=== PATIENT | male | born 1975 | race Native Hawaiian/Other Pacific Islander ===

== ENCOUNTER 2016-11-01 16:33 | Inpatient (IN) | payer SELFPAY ==
[2016-11-01] MEDS ORDERED: ONDANSETRON HCL/PF 4 MG/ 2ML VIAL IVP ONE (16:42)
[2016-11-01] MEDS ORDERED: HYDROmorphone HCL/PF 1 MG/ML DISP.SYRIN IVP ONE (16:42)
[2016-11-01] MEDS ORDERED: methylPREDNISolone SOD SUCC 125 MG/2 ML VIAL IVP ONE (16:46)
[2016-11-01] MEDS ORDERED: diphenhydrAMINE HCL 50 MG/ML VIAL IVP ONE (16:46)
[2016-11-01] MEDS ORDERED: 0.9 % SODIUM CHLORIDE 1,000 ML IV SCH (17:00)
[2016-11-01] MEDS ORDERED: 0.9 % SODIUM CHLORIDE 1,000 ML IV ONE ×2 (17:00→20:51)
[2016-11-01 17:09] LABS: BASOPHILS % 0.2 (0.0-1.5); EOSINOPHILS % 1.7 % (0.0-6.8); LYMPHOCYTES # 1.3 # k/uL (0.6-4.0); MEAN CORPUSCULAR HEMOGLOBIN 36.2 pg (28.0-34.0); MONOCYTES # 0.4 # k/uL (0.0-0.9); MONOCYTES % 2.1 % (0.0-11.0); NEUTROPHILS # 15.1 # k/uL (1.4-7.7)
[2016-11-01 18:50] LABS: eGFR (African) > 60; eGFR (Non-African) > 60
[2016-11-01] MEDS ORDERED: HALOPERIDOL LACTATE 5 MG/ML VIAL IM ONE (18:50)
[2016-11-01] MEDS ORDERED: HYDROmorphone HCL/PF 1 MG/ML DISP.SYRIN IM ONE (19:24)
--- NOTE | 2016-11-01 20:35 | Diagnostic Imaging Report ---
[facility] [id number] [facility] [address] [place], [place]. [address] Report Submission Date: Nov 01, 2016 6:01:43 PM MASTER MECHANIC Patient Study Name: ANGELITA JOY Date: Nov 01, 2016 5:41:09 PM MASTER MECHANIC Modality Type: CT\SR Gender: M Description: CT ABD & PELVIS W/O CO : 73 Institution: [facility] Physician: HIGINIO CAMPOS CT abdomen and pelvis without IV contrast Clinical history: Severe abdominal pain, history of pancreatitis Radiation dose DLP 660 No focal hepatic or splenic pathology. Extensive acute pancreatitis with peripancreatic edema involving the body, tail and head of the pancreas without visible pseudocyst. Kidneys are normal. No abdominal aortic aneurysm. No free fluid or free air in the abdomen or pelvis. No bowel obstruction. Normal appendix. Few diverticula is in the sigmoid colon. Impression: Extensive acute pancreatitis with peripancreatic edema without visible pseudocyst Mild diverticulosis of the colon No bowel obstruction and no free fluid or free air in the abdomen or pelvis Electronically signed on Nov 01, 2016 6:01:43 PM MASTER MECHANIC by: Oli MCCABE
[2016-11-01 20:43] VITALS: BMI 27.8
--- NOTE | 2016-11-01 20:44 | History and Physical Report ---
History of Present Illnes - History of Present Illness Reason for Visit: abd pain History of Present Illness: 41yo male with a history of recurrent pancreatitis. Last episode was about 3 months ago. Patient seems to have had a endoscopy/ERCP with no pathology found. Patient denies any gall stones, history of alcoholism. patient does have a history of hyperlipidemia. On the evening of admission he started to have some abdominal pain similar to what he has had in the past with pancreatitis. Patient has had some nausea and vomiting associated with it. He presented to the ED and was noted to have an elevated amylase and acute pancreatitis on CT scanning. Patient was admitted for further evaluation and treatment. Ransons score of 2 - Past Medical History Cardiac: Hyperlipidemia - Past Surgical History Past Surgical History: None - Past Social History Smoke: No Alcohol: None Drugs: None Lives: With Family Domestic Violence: Negative - Health Maintenance Health Maintenance: Cholesterol. denies: Colonoscopy Influenza Vaccine: No Pneumonia Vaccine: No Resuscitation Status: Resusciation Status Resuscitation Status Full Code - Unable to Obtain History Unable to Obtain: Yes Review of Systems - Review of Systems Constitutional: Chills, Weakness. negative: Fever Eyes: negative: pain ENT: negative: Ear Pain, Ear Discharge, Mouth Pain, Mouth Swelling, Throat Pain Respiratory: negative: Cough, Shortness of Breath, Hemoptysis, SOB with Excertion, Pleuritic Pain Cardiovascular: negative: Chest Pain, Palpitations, Edema Gastrointestinal: Nausea, Vomiting, Abdominal Pain. negative: Diarrhea, Constipation, Melena, Hematochezia Genitourinary: negative: Dysuria, Frequency, Incontinence Musculoskeletal: negative: Neck Pain, Back Pain Skin: negative: Rash, Lesions Neurological: negative: Weakness, Numbness, Incoordination - Medications/Allergies Allergies/Adverse Reactions: Allergies Allergy/AdvReac Type Severity Reaction Status Date / Time No Known Allergies Allergy Verified 11/01/16 19:10 Current Inpatient Medications: Current Inpatient Medications Sodium Chloride (Normal Saline) 1,000 mls @ 1,000 mls/hr IV .Q1H GIRMA Miscellaneous (Chem Sticks) 1 each MC CHEMQ GIRMA Last Admin: 11/01/16 20:26 Dose: 1 each Exam - Exam Vital Signs: Vital Signs (72 hours) 11/01/16 11/01/16 20:18 20:20 Temperature 98.6 F Pulse Rate [ 78 94 H Pulse ox] Respiratory 18 20 Rate Blood Pressure 128/68 152/87 [Right Arm] O2 Sat by Pulse 99 97 Oximetry General: Oriented to Person, Oriented to Place, Oriented to Time, Cooperative. No: Alert (lethargic from pain meds) HEENT: Atraumatic, PERRLA, Mouth Mucous membr. moist/[place] Neck: Normal Range of Motion. No: Stridor, Rigidity, Lymphadenopathy Carotids: WNL Thyroid: WNL Lungs: Clear to auscultation, Normal air movement, Speaks full Sentences, Respiratory Distress. No: Wheezes, Rales, Rhonchi, Stridor Cardiovascular: Regular rate, Normal S1, Normal S2, No murmurs. No: Gallops, Rubs Abdomen: Soft, No hepatospenomegaly, No masses, Decreased Bowel Sounds. No: Distended Integumentary: Normal, [place], Warm, Dry Extremities: No clubbing, No cyanosis, No edema Neurological: Normal speech, Strength Equal Bilat, Normal tone Psych/Mental Status: Mental status NL, Mood NL, Appropriate Affect, Intact Judgment Assessment/Plan - Assessment/Plan (1) Recurrent pancreatitis Status: Acute Current Visit: Yes Plan: IV fluids support, will monitor lipase, amylase, CBC and liver tests. NPO for now. (2) Hyperglycemia Status: Acute Current Visit: Yes Assessment: Chem sticks QID with sliding scale insulin (3) Hyponatremia Status: Acute Current Visit: Yes Assessment: Will give patient NS IV and recheck VTE Assessment - RISK FACTOR SCORE VTE RISK FACTOR SCORES: AGE 40-60 YEARS, ANTICIPATED BED CONFINEMENT OR IMMOBILIZATION > 24 HOURS - RISK VTE MODERATE RISK: SCORE OF 2 (RISK PROXIMAL DVT 2-4%) PROPHYAXIS NEEDED
[2016-11-01] MEDS: 0.9 % SODIUM CHLORIDE 1,000 ML IV SCH (20:59)
[2016-11-01] MEDS ORDERED: ENOXAPARIN SODIUM 30 MG/0.3 ML DISP.SYRIN SQ SCH (21:00)
[2016-11-01] MEDS ORDERED: HYDROmorphone HCL/PF 2 MG/ML DISP.SYRIN ONE (21:02)
[2016-11-01] MEDS ORDERED: ENOXAPARIN SODIUM 30 MG/0.3 ML DISP.SYRIN SQ ONE (21:02)
[2016-11-01] MEDS ORDERED: INSULIN REGULAR, HUMAN 100 UNIT/ML 3ML VIAL ONE (21:03)
[2016-11-01] MEDS: INSULIN REGULAR, HUMAN 100 UNIT/ML 3ML VIAL SQ SCH (21:09)
[2016-11-01] MEDS: HYDROmorphone HCL/PF 1 MG/ML DISP.SYRIN IVP PRN (21:13)
[2016-11-01] MEDS ORDERED: ONDANSETRON HCL/PF 4 MG/ 2ML VIAL IVP PRN (21:21)
[2016-11-02] MEDS ORDERED: SALINE FLUSH 10 ML DISP.SYRIN IVF ONE ×2 (00:50→08:14)
[2016-11-02] MEDS ORDERED: HYDROmorphone HCL/PF 2 MG/ML DISP.SYRIN ONE ×2 (06:14→08:14)
[2016-11-02] MEDS ORDERED: 0.9 % SODIUM CHLORIDE 1,000 ML IV ONE (06:15)
[2016-11-02] MEDS: HYDROmorphone HCL/PF 1 MG/ML DISP.SYRIN IVP PRN ×2 (06:21→08:23)
[2016-11-02] MEDS: 0.9 % SODIUM CHLORIDE 1,000 ML IV SCH (06:21)
[2016-11-02 06:56] LABS: MEAN CORPUSCULAR HEMOGLOBIN 35.9 pg (28.0-34.0)
[2016-11-02 07:24] LABS: eGFR (African) > 60; eGFR (Non-African) > 60
[2016-11-02] MEDS: INSULIN REGULAR, HUMAN 100 UNIT/ML 3ML VIAL SQ SCH (07:48)
--- NOTE | 2016-11-02 08:16 | ED Physician Documentation ---
Abdominal Pain - HISTORIAN Historian: patient - HPI Stated Complaint: abdominal pain Chief Complaint: Abdominal Pain Additonal Information: hx of pancreatitis, flare today Onset: hours (1) Duration: constant, sudden-onset Timing: still present Context: denies: out of country travel, bad food, recent trauma Severity: severe Quality: sharp Front/Back of Body, Lg (Color): 1 - pain Associated Symptoms: nausea, vomiting Exacerbated by: food Relieved by: nothing Further Comments: no - ROS CONST: no problems GI/: other (epigastric pain, hx of pancreatitis) CVS/RESP: none EYES/ENT: none MS/SKIN/LYMPH: none NEURO/PSYCH: none - SOCIAL HX Smoking History: non-smoker Alcohol Use: none Drug Use: none - FAMILY HX Family History: no significant history - PAST HX Past History: pancreatitis, other (dm, hyperlipidemia) Ischemic Bowel Risk Factors: none Other History: none Surgeries/Procedures: none Immunizations: referred to PCP Allergies/Adverse Reactions: Allergies Allergy/AdvReac Type Severity Reaction Status Date / Time No Known Allergies Allergy Verified 11/01/16 19:10 - VITAL SIGNS Vital Signs: Vital Signs Temp Pulse Resp BP Pulse Ox 100 F H 86 16 124/83 92 11/02/16 06:00 11/02/16 06:00 11/02/16 06:00 11/02/16 06:00 11/02/16 06:00 - REVIEWED ASSESSMENTS Nursing Assessment Reviewed: Yes Vitals Reviewed: Yes Progress - Results/Orders Results/Orders: pt. given zofran, benadryl, solu medrol, dilaudid 1 mg x 2, haldol in er - Progress Progress: pt. very agitated, in pain and very dramatic in er Critical Care Note - Critical Care Note Total Time (mins): 0 ED Results Lab/Radiology - Lab Results Lab Results: Lab Results 11/01/16 11/01/16 17:00 17:00 WBC 17.10 K/ul H K/ul (4.00-12.00) RBC 4.69 M/ul M/ul (3.90-5.20) Hgb 17.0 g/dL g/dL (12.0-18.0) Hct 42.4 % % (37.0-53.0) MCV 90.4 fl fl (80.0-100.0) MCH 36.2 pg H pg (28.0-34.0) MCHC 40.1 g/dL H g/dL (30.0-36.0) RDW 13.9 % % (11.3-14.3) Plt Count 262 K/mm3 K/mm3 (130-400) Neut % (Auto) 87.9 % H % (39.0-79.0) Lymph % (Auto) 7.6 % L % (16.0-50.0) [place] % (Auto) 2.1 % % (0.0-11.0) Eos % (Auto) 1.7 % % (0.0-6.8) Baso % (Auto) 0.2 (0.0-1.5) Neut # 15.1 # k/uL H # k/uL (1.4-7.7) Lymph # 1.3 # k/uL # k/uL (0.6-4.0) [place] # 0.4 # k/uL # k/uL (0.0-0.9) Eos # 0.3 # k/uL # k/uL (0.0-0.6) Baso # 0.0 # k/uL # k/uL (0.0-0.5) Reactive Lymphs % 0.4 % % (0.0-5.0) Reactive Lymphs # 0.1 # k/uL # k/uL (0.0-0.8) Sodium 126 mmol/L L mmol/L (136-145) Potassium 3.5 mmol/L mmol/L (3.5-5.0) Chloride 98 mmol/L mmol/L (98-110) Carbon Dioxide 25 mmol/L mmol/L (20-32) BUN 6 mg/dL L mg/dL (10-26) Creatinine 0.9 mg/dL mg/dL (0.4-1.5) Est GFR ( Amer) > 60 (60 - ) Est GFR (Non-Af Amer) > 60 (60 - ) Glucose 238 mg/dL H mg/dL (70-99) Calcium 9.8 mg/dL mg/dL (8.5-10.5) Total Bilirubin 0.2 mg/dL mg/dL (0.2-1.2) AST 6 U/L U/L (0-41) ALT < 5 U/L U/L (0-45) Alkaline Phosphatase 94 U/L U/L (46-116) Total Protein 6.4 g/dL g/dL (6.0-8.5) Albumin 4.5 g/dL g/dL (3.0-5.5) Amylase 339 U/L H U/L (20-104) - Radiology Radiology Impressions: ct shows acute pancreatitis, extensive - Orders Orders: ED Orders Category Date Time Status Place Saline Lock/IV Now Care 11/01/16 16:[address] ABD & PELVIS W/O CON Stat Exams 11/01/16 Completed AMYLASE Routine Lab 11/01/16 17:00 Completed CBC/PLATELET/DIFF Routine Lab 11/01/16 17:00 Completed CMP Routine Lab 11/01/16 17:00 Completed 0.9 % Sodium Chloride [Normal Saline] 1,000 ml Med 11/01/16 17:00 Ordered IV .Q1H Chem Sticks Med 11/01/16 17:00 Ordered 1 each CHEMQ HYDROmorphone HCL/PF [Dilaudid] Med 11/01/16 19:24 Discontinued 1 mg IM NOW ONE HYDROmorphone HCL/PF [Dilaudid] Med 11/01/16 16:42 Discontinued 1 mg IVP NOW ONE Haloperidol Lactate [Haldol] Med 11/01/16 18:50 Discontinued 10 mg IM NOW ONE Ondansetron HCl/Pf [Zofran 4 mg/2 ml] Med 11/01/16 16:42 Discontinued 8 mg IVP NOW ONE diphenhydrAMINE HCL [Benadryl] Med 11/01/16 16:46 Discontinued 50 mg IVP NOW ONE methylPREDNISolone SOD SUCC [Solu-MEDROL] Med 11/01/16 16:46 Discontinued 125 mg IVP NOW ONE Oxygen Daily Oxygen 11/01/16 17:15 Ordered Abdominal Pain Physical Exam - Physical Exam General Appearance: severe distress EENT: eye inspection normal, ENT inspection normal, pharynx normal, no signs of dehydration, DRE, no nystagmus, TM's nml NECK: normal inspection, thyroid normal, supple RESPIRATORY: no resp distress, chest non-tender, breath sounds normal CVS: reg rate & rhythm, heart sounds normal, equal pulses, no murmur, no gallop , PMI nml, no JVD ABDOMEN: soft, no organomegaly, normal bowel sounds, tenderness (epigastrium) BACK: normal inspection, no CVA tenderness SKIN: warm/dry, normal color EXTREMITIES: non-tender, normal range of motion, no evidence of injury NEURO: oriented X3, CN's nml as tested, motor nml, sensation nml, mood/affect nml Vital Signs: Vital Signs Temp Pulse Resp BP Pulse Ox 100 F H 86 16 124/83 92 11/02/16 06:00 11/02/16 06:00 11/02/16 06:00 11/02/16 06:00 11/02/16 06:00 Discharge Clincal Impression: Acute pancreatitis Qualifiers: Pancreatitis type: unspecified pancreatitis type Acute pancreatitis complication: unspecified Qualified Code(s): K85.90 - Acute pancreatitis without necrosis or infection, unspecified Comments: case discussed with Dr. Larry. Admitted. Condition: Stable Disposition: 01 HOME, SELF-CARE Decision to Admit: NO Decision Time: 20:15
[2016-11-02 08:18] LABS: MONOCYTES % 1 % (0-11); SEGMENTED NEUTROPHILS % 61 % (39-79)
--- NOTE | 2016-11-02 09:10 | Discharge Summary ---
Discharge Summary - Discharge Sumary History of Present Illness: 41yo male with a history of recurrent pancreatitis. Last episode was about 3 months ago. Patient seems to have had a endoscopy/ERCP with no pathology found. Patient denies any gall stones, history of alcoholism. patient does have a history of hyperlipidemia. On the evening of admission he started to have some abdominal pain similar to what he has had in the past with pancreatitis. Patient has had some nausea and vomiting associated with it. He presented to the ED and was noted to have an elevated amylase and acute pancreatitis on CT scanning. Patient was admitted for further evaluation and treatment. Ransons score of 2 Home Medications: Ambulatory Orders Medication Instructions Recorded [place]-3 Fatty Acids/Fish Oil 1 each PO D #100 capsule 11/02/16 [[place] 30 Capsule] traMADol HCL [Ultram] 50 mg PO Q6H PRN #20 tablet 11/02/16 Allergies/Adverse Reactions: Allergies Allergy/AdvReac Type Severity Reaction Status Date / Time No Known Allergies Allergy Verified 11/01/16 19:10 Patient Problems: Current Active Problems Problem Status Onset Acute pancreatitis Acute Hyperglycemia Acute Hyponatremia Acute Recurrent pancreatitis Acute Discharge Summary: Patient was started on IV fluids, IV Zofran and IV Dilaudid for pain control. Patient remained stable through the night. 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 Blood test were improved with amylase down to 192, WBC improved to 13,300, Na was up to 130. BS remained elevated at 226. Patient was advised to stay longer but refused to do so. Do to patient wanting to leave he was started on a clear liquid diet which he tolerated well. Patient left AMA. - Final Diagnosis (1) Recurrent pancreatitis Problems: Improved, patient was advised to avoid all fats in his diet and to restart [place] 3 (2) Hyperglycemia Problems: Patient was advised that his blood sugar may not improve with improvement of his pancreatitis. Was advised to see his physician ASA when he returns home for further evaluation. (3) Hyponatremia Problems: Improved.
[2016-11-02 09:22] VITALS: BP 124/69
[2016-11-03 17:51] LABS: LIPASE 480 U/L (13-60)
== END 2016-11-02 11:09 | disposition left against medical advice (07) | DRG 439 ==
LOC: ED 16:33 → SOUTH 20:10
PROVIDERS: ADMIT Family Medicine; ATTEND Family Medicine
DX: K86.1 Other chronic pancreatitis (principal); E87.1 Hypo-osmolality and hyponatremia; E11.65 Type 2 diabetes mellitus with hyperglycemia
CPT/HCPCS: 74176; 80053; 80061; 82150; 83615; 83690; 85025; J1170; J1200; J1630; J1650; J1815; J2405; J2930; J7030; 96361; 96372; 96374; 96375; 99222; 99238; 99283; 99284; S1016